=== PATIENT | female | born 1955 | race Caucasian/White ===

== ENCOUNTER 2016-12-21 07:22 | Day surgery (SDC) | payer BC ==
[~2016-12-21 07:22] MED LIST: Metoclopramide 10 MG/2 ML SDV IV PRN; Sodium Chloride 0.9% 1,000 ML IV SCH; Sodium Chloride 0.9% 10 ML Syringe FLUSH PRN
[2016-12-21] MEDS ORDERED: Propofol 1,000 MG/100 ML SDV ONE (09:10)
[2016-12-21 13:59] VITALS: BP 150/56
--- NOTE | 2016-12-24 07:40 | OR ---
DATE OF OPERATION: 12/21/2016 PREOPERATIVE DIAGNOSIS: Rectal bleeding and pain POSTOPERATIVE DIAGNOSIS: Rectal mass PROCEDURE: Colonoscopy. INDICATIONS FOR PROCEDURE: Patient has had some rectal pain and bleeding for several months. She did have previous colonoscopy about 9 years ago. DESCRIPTION OF PROCEDURE: Informed consent was obtained from the patient. The patient was taken to the operating room and placed on the table in the left lateral decubitus positioin. Monitored anesthesia care was applied. Digital rectal exam reveals a circumferential mass present at about 2 cm with some bloody drainage. The endoscope was passed through the anus under direct visualization and maneuvered until reaching the cecum. This was confirmed by the appendiceal orifice and ileocecal valve. Counter pressure was utilized. Colonoscope was slowly withdrawn and the mucosa was carefully examined. Prep was fair. Views with irrigation were adequate. Single polyp was identified at 15 cm. Hot-biopsy polypectomy was performed. A circumferential mass was found in the rectum from approximately 2 cm up to 8 cm. Multiple biopsies were taken with hot and cold forceps biopsies. No active bleeding was seen at the conclusion of the case. Scope was then withdrawn. It was not retroflexed in the rectum. The patient tolerated the procedure well and was brought to the recovery room in good condition. FINDINGS: Single polyp at 15 cm and circumferential rectal mass between 2 and 8 cm. RECOMMENDATIONS: We will follow up biopsy results and will need further workup of this rectal mass including imaging and labs work. NICK /[id number] ROSARIO
== END 2016-12-21 11:40 | disposition home or self-care (01) ==
LOC: LB.SDS 07:22
PROVIDERS: ATTEND Surgery
DX: C20 Malignant neoplasm of rectum (principal); I10 Essential (primary) hypertension; Z79.899 Other long term (current) drug therapy
CPT/HCPCS: 45380; 88305; J7040; J7050; J3490

== ENCOUNTER 2017-12-19 10:24 | Day surgery (SDC) | payer BC ==
[~2017-12-19 10:24] MED LIST changes: -Sodium Chloride 0.9% 1,000 ML IV SCH
[2017-12-19] MEDS ORDERED: Sodium Chloride 0.9% 1,000 ML IV SCH (11:00)
[2017-12-19] MEDS ORDERED: Propofol 200 MG/20 ML SDV ONE (14:10)
[2017-12-19 14:52] VITALS: BP 162/59
--- NOTE | 2017-12-19 22:18 | OR ---
DATE OF OPERATION: 12/19/2017 PREOPERATIVE DIAGNOSIS: History of anal cancer. POSTOPERATIVE DIAGNOSIS: History of anal cancer. PROCEDURE: Sigmoidoscopy. ANESTHESIA: MAC. ESTIMATED BLOOD LOSS: None. COMPLICATIONS: None. 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 She has received chemotherapy and radiation. The patient brought back to the OR today for sigmoidoscopy. DESCRIPTION OF PROCEDURE: Informed consent was obtained from the patient. The patient was taken to the operating room, placed on table in left lateral decubitus position. Monitored anesthesia care was administered. Digital rectal exam did reveal some small mobile nodules. It appeared to be hypertrophied papillae. Colonoscope was then advanced through the anus up to the sigmoid. The patient did have some radiation proctitis present, retroflexion was then performed. No obvious enlarged mass or signs of recurrent anal cancer. No biopsies were taken. The colonoscope was then withdrawn. The patient tolerated procedure well and was brought to recovery room in good condition. NICK /[id number]
--- NOTE | 2017-12-19 22:42 | OR ---
DATE OF OPERATION: ADDENDUM: FINDINGS: No obvious signs of recurrent anal squamous cell cancer. RECOMMENDATIONS: We would recommend repeat anoscopy in the office in 3 months' time. NICK /[id number]
== END 2017-12-19 15:50 | disposition home or self-care (01) ==
LOC: LB.SDS 10:24
PROVIDERS: ATTEND Surgery
DX: K62.7 Radiation proctitis (principal); Z92.21 Personal history of antineoplastic chemotherapy; Z92.3 Personal history of irradiation; Z85.048 Personal history of other malignant neoplasm of rectum, rectosigmoid junction, and anus
CPT/HCPCS: J2704; J7030

== ENCOUNTER 2020-04-19 21:59 | Emergency (ER) | payer BC ==
--- NOTE | 2020-04-19 22:24 | EDM.PDOC ---
ED HPI GENERAL MEDICAL PROBLEM - General Chief Complaint: Respiratory Problem Stated Complaint: COVID POS, MALAISE Time Seen by Provider: 04/19/20 22:00 Source of Information: Reports: Patient History Limitations: Reports: No Limitations - History of Present Illness INITIAL COMMENTS - FREE TEXT/NARRATIVE: Patient is a 65 y/o female who no significant past medical history (HTN and is on lisinopril), who presents with shortness of breath and nasal congestion. She states she tested positive for COVID for April 09 and has had congestion ever since. Patient with shortness of breath today that is worse with exertion. She denies any fever, NELSON, N/V/D, abdominal pain, chest pain, or dizziness. - Related Data Allergies Allergy/AdvReac Type Severity Reaction Status Date / Time No Known Allergies Allergy Verified 12/21/16 08:31 Home Meds: Home Meds Lisinopril 20 mg PO DAILY 12/20/16 [History] Past Medical History - Past Health History Medical/Surgical History: Denies Medical/Surgical History Cardiovascular History: Reports: Hypertension Gastrointestinal History: Reports: Hemorrhoids [employer] History: Reports: Other (See Below) Other [employer] History: tubal ligation Oncologic (Cancer) History: Reports: Other (See Below) Other Oncologic History: hx of anal ca 2017 pt has received chemo and radiation this last year - Past Surgical History Cardiovascular Surgical History: Reports: None Oncologic Surgical History: Reports: Other (See Below) Other Oncologic Surgeries/Procedures: anal mass removed Social & Family History - Family History Family Medical History: No Pertinent Family History Cardiac: Reports: ID, Pacemaker GI: Reports: Cirrhosis : Reports: Dialysis, Other (See Below) Other Family History: kidney transplant Oncologic: Reports: Brain, Lung - Caffeine Use Caffeine Use: Reports: Coffee ED ROS GENERAL - Review of Systems Review Of Systems: See Below Constitutional: Reports: No Symptoms HEENT: Reports: Sinus Problem (nasal congestion) Respiratory: Reports: Shortness of Breath, Cough Cardiovascular: Reports: No Symptoms GI/Abdominal: Reports: No Symptoms : Reports: No Symptoms Skin: Reports: No Symptoms Neurological: Reports: No Symptoms ED EXAM, GENERAL - Physical Exam Exam: See Below Exam Limited By: No Limitations General Appearance: Alert, Anxious, Moderate Distress Head: Atraumatic, Normocephalic Neck: Normal Inspection, Supple, Non-Tender Respiratory/Chest: No Accessory Muscle Use, Respiratory Distress, Decreased Breath Sounds, Other (unable to speak in full sentences; tachypnea) Cardiovascular: Normal Peripheral Pulses, Regular Rate, Rhythm, No Edema, No Murmur Neurological: Alert, Oriented, Normal Gait, No Motor/Sensory Deficits Psychiatric: Normal Affect, Anxious Skin Exam: Warm, Dry, Intact, Normal Color, No Rash Course - Vital Signs Text/Narrative:: Patient with pulse oximetry of 80% on room air. 4 L O2 placed on patient. Labs and CXR ordered. Patient with lactic acidosis and positive COVID. CXR with diffuse patchy airspace infiltrates throughout the lungs. Last Recorded V/S: Last Vital Signs Temp 36.8 C 04/19/20 22:12 Pulse 66 04/19/20 23:10 Resp 22 H 04/19/20 23:10 BP 150/64 H 04/19/20 23:10 Pulse Ox 97 04/19/20 23:10 - Orders/Labs/Meds Orders: Active Orders 24 hr Category Date Time Status Chest 1V Frontal [CR] Stat Exams 04/19/20 22:20 Taken Isolation [COMM] Routine Oth 04/19/20 22:21 Active Labs: Laboratory Tests 04/19/20 04/19/20 04/19/20 Range/Units 22:20 22:20 22:20 WBC 6.8 D (4.0-11.0) K/uL RBC 4.81 (3.80-5.80) M/uL Hgb 13.9 D (11.5-16.5) g/dL Hct 41.2 D (37.0-47.0) % MCV 86 (76-96) fL MCH 28.9 (27.0-32.0) pg MCHC 33.7 (31.0-35.0) g/dL RDW 13.7 (11.0-16.0) % Plt Count 321 (150-500) K/uL MPV 10.4 H (6.0-10.0) fL Neut % (Auto) 70.5 H (45.0-70.0) % Lymph % (Auto) 19.5 L (20.0-40.0) % Duval % (Auto) 8.8 (3.0-10.0) % Eos % (Auto) 0.3 L (1.0-5.0) % Baso % (Auto) 0.9 H (0.0-0.5) % Neut # (Auto) 4.82 (2.00-7.50) K/uL Lymph # (Auto) 1.33 L (1.50-4.00) K/uL Duval # (Auto) 0.60 (0.20-0.80) K/uL Eos # (Auto) 0.02 L (0.04-0.40) K/uL Baso # (Auto) 0.06 (0.02-0.10) K/uL Sodium 140 (136-145) mmol/L Potassium 4.1 (3.5-5.1) mmol/L Chloride 103 (98-107) mmol/L Carbon Dioxide 19.0 L D (21.0-32.0) mmol/L Anion Gap 22.1 H (5.0-15.0) mmol/L BUN 32 H D (8-26) mg/dL Creatinine 1.47 H D (0.55-1.02) mg/dL Est Cr Clr Drug Dosing TNP Estimated GFR (MDRD) 36 L (>60) MLS/MIN BUN/Creatinine Ratio 21.8 (6-25) Glucose 128 H D (74-100) mg/dL Lactic Acid 3.5 H (0.4-2.0) mmol/L Calcium 9.3 (8.5-10.1) mg/dL Total Bilirubin 0.8 D (0.0-1.0) mg/dL AST 64 H (15-37) U/L ALT 50 (12-78) U/L Alkaline Phosphatase 193 H (46-116) U/L Total Protein 8.1 (6.4-8.2) g/dL Albumin 3.1 L (3.4-5.0) g/dL Globulin 5.0 H (2.2-4.2) g/dL Albumin/Globulin Ratio 0.6 L (0.8-2.0) SARS CoV-2 RNA Rapid JOYD 04/19/20 Range/Units 22:21 WBC (4.0-11.0) K/uL RBC (3.80-5.80) M/uL Hgb (11.5-16.5) g/dL Hct (37.0-47.0) % MCV (76-96) fL MCH (27.0-32.0) pg MCHC (31.0-35.0) g/dL RDW (11.0-16.0) % Plt Count (150-500) K/uL MPV (6.0-10.0) fL Neut % (Auto) (45.0-70.0) % Lymph % (Auto) (20.0-40.0) % Duval % (Auto) (3.0-10.0) % Eos % (Auto) (1.0-5.0) % Baso % (Auto) (0.0-0.5) % Neut # (Auto) (2.00-7.50) K/uL Lymph # (Auto) (1.50-4.00) K/uL Duval # (Auto) (0.20-0.80) K/uL Eos # (Auto) (0.04-0.40) K/uL Baso # (Auto) (0.02-0.10) K/uL Sodium (136-145) mmol/L Potassium (3.5-5.1) mmol/L Chloride (98-107) mmol/L Carbon Dioxide (21.0-32.0) mmol/L Anion Gap (5.0-15.0) mmol/L BUN (8-26) mg/dL Creatinine (0.55-1.02) mg/dL Est Cr Clr Drug Dosing Estimated GFR (MDRD) (>60) MLS/MIN BUN/Creatinine Ratio (6-25) Glucose (74-100) mg/dL Lactic Acid (0.4-2.0) mmol/L Calcium (8.5-10.1) mg/dL Total Bilirubin (0.0-1.0) mg/dL AST (15-37) U/L ALT (12-78) U/L Alkaline Phosphatase (46-116) U/L Total Protein (6.4-8.2) g/dL Albumin (3.4-5.0) g/dL Globulin (2.2-4.2) g/dL Albumin/Globulin Ratio (0.8-2.0) SARS CoV-2 RNA Rapid JODY Positive H Meds: Medications Discontinued Medications Generic Name Dose Route Start Last Admin Trade Name Freq PRN Reason Stop Dose Admin Dexamethasone 6 mg 04/19/20 23:35 Decadron IVPUSH 04/19/20 23:36 ONETIME ONE Departure - Departure Time of Disposition: 23:45 Disposition: DC/Tfer to Acute Hospital 02 Condition: Fair Clinical Impression: COVID-19, Respiratory distress - Discharge Information *PRESCRIPTION DRUG MONITORING PROGRAM REVIEWED*: Not Applicable *COPY OF PRESCRIPTION DRUG MONITORING REPORT IN PATIENT DAMON: Not Applicable Sepsis Event Note (ED) - Focused Exam Vital Signs: Vital Signs Temp Pulse Resp BP Pulse Ox 04/19/20 23:10 66 22 H 150/64 H 97 04/19/20 22:12 36.8 C 66 20 182/84 H 81 L - My Orders Last 24 Hours: My Active Orders 04/19/20 22:20 Chest 1V Frontal [CR] Stat 04/19/20 22:21 Isolation [COMM] Routine - Assessment/Plan Last 24 Hours: My Active Orders 04/19/20 22:20 Chest 1V Frontal [CR] Stat 04/19/20 22:21 Isolation [COMM] Routine Plan: Discussed with Dr Lima from [facility] ([place], [place]) and he will accept this patient. Patient adamantly stated that she does not want to be on a ventilator. Conveyed this to the transfer line when asked her code status.
[2020-04-19] MEDS ORDERED: Dexamethasone 4 MG/ML SDV IVPUSH ONE (23:35)
[2020-04-19 23:37] VITALS: BP 150/64
[2020-04-20 04:40] VITALS: PULSE 70
--- NOTE | 2020-04-20 15:11 | CR ---
CLINICAL DATA: Shortness of breath. AP CHEST, 19 APRIL 2020: No priors. The patient has taken a very poor inspiration. The heart size is within normal limits. The pulmonary vasculature appears prominent. It is probably accentuated by the poor inspiration. There are poorly defined infiltrates in both lungs. Pneumonia should be considered. Pulmonary edema should be considered. There is slight blunting of both costophrenic angles, suggesting small bilateral pleural effusions. No pneumothorax. Job: [id number] [facility]
== END 2020-04-20 01:55 ==
LOC: LB.ED 21:59
DX: U07.1 COVID-19 (principal); I10 Essential (primary) hypertension; Z79.899 Other long term (current) drug therapy
CPT/HCPCS: 36415; 71045; 80053; 83605; 85025; 87804; 87804-59; 96374; 99285-25; J1100; U0002

== ENCOUNTER 2021-09-19 21:52 | Emergency (ER) | payer MEDICARE ==
[2021-09-19 23:18] VITALS: BP 170/68; PULSE 87
== END 2021-09-19 22:40 | disposition home or self-care (01) ==
LOC: LB.ED 21:52
DX: R60.0 Localized edema (principal); I10 Essential (primary) hypertension; Z86.16 Personal history of COVID-19; Z79.899 Other long term (current) drug therapy
CPT/HCPCS: 99281; 99282

== ENCOUNTER 2024-03-19 09:28 | Day surgery (SDC) | payer MEDICARE ==
[~2024-03-19 09:28] MED LIST changes: -Sodium Chloride 0.9% 10 ML Syringe FLUSH PRN
[2024-03-19] MEDS: Sodium Chloride 0.9% 1,000 ML IV SCH (10:35)
[2024-03-19] MEDS ORDERED: Lidocaine 1% 30 ML SDV ONE (11:15)
[2024-03-19 11:31] VITALS: BP 146/74; PULSE 59
== END 2024-03-19 12:25 | disposition home or self-care (01) ==
LOC: LB.SDS 09:28
PROVIDERS: ATTEND Surgery
DX: Z12.11 Encounter for screening for malignant neoplasm of colon (principal); K57.30 Diverticulosis of large intestine without perforation or abscess without bleeding; I10 Essential (primary) hypertension; M81.0 Age-related osteoporosis without current pathological fracture; E03.9 Hypothyroidism, unspecified; Z85.038 Personal history of other malignant neoplasm of large intestine
CPT/HCPCS: J2704; J7030